=== PATIENT | male | born 1990 | race African-American/Black ===

== ENCOUNTER 2025-06-13 23:09 | Emergency (ER) | payer OTHER ==
[~2025-06-13] VITALS: Ht 180.3 cm; Wt 96.0 kg
[2025-06-13] MEDS ORDERED: METHIMAZOLE10 MG PO (23:36)
[2025-06-13] MEDS ORDERED: FLUTICASONE-SA1 EAC3 INH (23:36)
[2025-06-13] MEDS ORDERED: TRAZODONE HCL150 MG PO (23:37)
[2025-06-13] MEDS ORDERED: LAMICTAL150 MG PO (23:37)
[2025-06-13] MEDS ORDERED: VENTOLIN HFA18 GM (23:38)
[2025-06-13] MEDS ORDERED: ZOLOFT100 MG PO (23:38)
[2025-06-13] MEDS ORDERED: OMEPRAZOLE20 MG PO (23:38)
[2025-06-13] MEDS ORDERED: ATOMOXETINE HCL60 MG PO (23:39)
[2025-06-13] MEDS ORDERED: LATUDA80 MG PO (23:39)
[2025-06-14] MEDS ORDERED: HYDROCODONE/ACETA 7.5/325 TAB PO ONE (00:15)
[2025-06-14 01:51] VITALS: BP 113/76
== END 2025-06-14 01:33 | disposition other institution, planned readmission (95) ==
LOC: ED 23:09
DX: S00.12XA Contusion of left eyelid and periocular area, initial encounter (principal); S00.83XA Contusion of other part of head, initial encounter; J45.909 Unspecified asthma, uncomplicated; E05.90 Thyrotoxicosis, unspecified without thyrotoxic crisis or storm; Z79.899 Other long term (current) drug therapy; Y04.2XXA Assault by strike against or bumped into by another person, initial encounter
CPT/HCPCS: 70450; 70486; 71250; 72125; 99284-25; A9270